=== PATIENT | male | born 1970 | race Caucasian/White ===

== ENCOUNTER 2023-10-10 06:08 | Day surgery (SDC) | payer OTHER, SELFPAY ==
[2023-10-10 08:38] VITALS: BMI 46.0
[2023-10-10 08:45] VITALS: BP 144/90; BMI 46.0
[2023-10-10 10:37] VITALS: BP 118/89
[2023-10-10 10:45] VITALS: BP 123/82
[2023-10-10 10:57] VITALS: BP 144/98
== END 2023-10-10 11:08 | disposition home or self-care (01) ==
LOC: GI 06:08
PROVIDERS: ATTENDING PHYSICIAN Internal Medicine Gastroenterology
DX: Z12.11 Encounter for screening for malignant neoplasm of colon (principal); D12.2 Benign neoplasm of ascending colon; D12.3 Benign neoplasm of transverse colon; D12.5 Benign neoplasm of sigmoid colon; K57.30 Diverticulosis of large intestine without perforation or abscess without bleeding; K64.8 Other hemorrhoids; Z86.010 Personal history of colon polyps
CPT/HCPCS: 45385; 88305